=== PATIENT | female | born 1965 | race African-American/Black ===

== ENCOUNTER 2017-07-15 11:47 | Emergency (ER) | payer MEDICAID, OTHER ==
[2017-07-15] MEDS ORDERED: Acetaminophen 500 MG TAB ONE (14:16)
== END 2017-07-15 14:23 | disposition home or self-care (01) ==
LOC: ERS 11:47
DX: J11.1 Influenza due to unidentified influenza virus with other respiratory manifestations (principal); J20.9 Acute bronchitis, unspecified; I10 Essential (primary) hypertension; F31.9 Bipolar disorder, unspecified; F20.9 Schizophrenia, unspecified; F17.210 Nicotine dependence, cigarettes, uncomplicated
CPT/HCPCS: 99406

== ENCOUNTER 2020-02-06 10:26 | Emergency (ER) | payer OTHER ==
[2020-02-06 12:43] LABS: #Basophils 0.1 thou/uL (0.0-0.2); #Eosinphils 0.2 thou/uL (0.0-0.7); #Lymphocytes 2.6 thou/uL (1.20-3.40); #Monocytes 0.4 thou/uL (0.11-0.59); #Neutrophils 2.3 thou/uL (1.40-6.50); %Basophils 0.9 % (0.0-1.0); %Eosinophils 3.5 % (0.0-10.0); %Lymphocytes 47.1 % (21.0-51.0); %Monocytes 6.9 % (0.0-10.0); %Neutrophils 41.5 % (42.0-75.0); Hemoglobin 13.7 g/dL (12.0-16.0); Mean Corpuscular HGB CONC 32.4 g/dL (32.0-36.0); Mean Corpuscular Hemoglobin 26.1 pg (27.0-31.0); Mean Corpuscular Volume 80.5 fL (78.0-98.0); Mean Platelet Volume 8.5 fL (7.4-10.4); Platelet Count 311 thou/uL (130-400); RBC Distribution Width 12.5 % (11.5-14.5); Red Blood Cell (RBC) Count 5.26 mill/uL (4.20-5.40); White Blood Cell (WBC) Count 5.5 thou/uL (4.8-10.8)
[2020-02-06 13:07] LABS: ALT (SGPT) 19 U/L (8-55); AST (SGOT) 21 U/L (5-34); Albumin 4.2 g/dL (3.5-5.0); Alkaline Phosphatase 123 U/L (40-110); Anion Gap 13 mmol/L (10-20); BUN (Urea Nitrogen) 17 mg/dL (9.8-20.1); Bilirubin, Total 0.4 mg/dL (0.2-1.2); Calc. Creatinine Clearance 0 mL/min (70-130); Carbon Dioxide 26 mmol/L (22-29); Chloride 105 mmol/L (98-107); Estimated GFR-MDRD 70; Glucose 173 mg/dL (70-105); Lipase 22 U/L (8-78); Potassium 4.5 mmol/L (3.5-5.1); Protein, Total 7.2 g/dL (6.0-8.3); Sodium 139 mmol/L (136-145)
[2020-02-06] MEDS ORDERED: Iopamidol-370 76% 500 ML 1 ML ONE (13:36)
[2020-02-06] MEDS ORDERED: Magnesium 2 GM/50 ML BAG (IN WATER) ONE (14:08)
--- NOTE | 2020-02-06 14:31 | RAD ---
PORTABLE CHEST ONE VIEW: Date: 02-06-2020 Time: 1:53 p.m. History: Chest pain, abdominal pain, constipation. Comparison: 11-10-15 FINDINGS: The heart size is normal. The aorta is tortuous. The lungs are expanded without focal areas of consol idation, pneumothoraces, savage edema or pleural effusions. IMPRESSION: No acute process. POS: KATHYA
--- NOTE | 2020-02-06 14:59 | CT ---
CT ABDOMEN AND PELVIS WITH IV CONTRAST: History: Abdominal pain. FINDINGS: The lung bases are clear. No free air, free fluid, or lymphadenopathy is seen in the abdomen or pelvi s. No calcified gallstones are noted. The liver, spleen, pancreas, and kidneys are normal. There is a 3 cm left adrenal mass with internal calcification. There are vascular calcifications without evidence for aneurysmal dilation of the abdominal aorta. A normal appearing appendix is noted. The small bowel loops are not abnormally dilated. There is thicke karen of the wall of the rectum with mild perirectal inflammatory changes. There are degenerative do ges in the spine. IMPRESSION: 1. Findings are suggestive of proctitis. 2. Indeterminate 3 cm left adrenal mass. Dedicated CT scan of the abdomen using adrenal protocol (wit h and without IV contrast) is recommended. POS: KATHYA
[2020-02-06 15:47] LABS: Bilirubin Negative (Negative); Blood, Urine Negative (Negative); Clarity Clear (Clear); Glucose, Urine (Dipstick) 300 mg/dL (Negative); Ketone, Urine Negative (Negative); Leukocyte Negative Leu/uL (Negative); Nitrite Negative (Negative); Protein, Urine (Dipstick) Negative (Neg-Trace); Specific Gravity, Urine 1.045 (1.002-1.036); Urobilinogen Normal mg/dL (Less than 2); pH, Urine 6.5 (5.0-9.0)
== END 2020-02-06 15:26 | disposition home or self-care (01) ==
LOC: ERS 10:26
DX: K62.89 Other specified diseases of anus and rectum (principal); E27.9 Disorder of adrenal gland, unspecified; I10 Essential (primary) hypertension; F31.9 Bipolar disorder, unspecified; F20.9 Schizophrenia, unspecified; F17.210 Nicotine dependence, cigarettes, uncomplicated; Z79.899 Other long term (current) drug therapy
CPT/HCPCS: 36415; 71045; 74177; 80053; 81003; 82553; 83690; 83735; 84484; 85025; 86850; 86900; 86901; 93005; 96361; 96365; J3475; Q9967